=== PATIENT | male | born 1980 | race Caucasian/White ===

== ENCOUNTER 2017-06-24 16:19 | Emergency (ER) | payer OTHER ==
[~2017-06-24] VITALS: Ht 182.9 cm; Wt 108.9 kg
[2017-06-24] MEDS ORDERED: PAXIL10 MG PO (16:32)
[2017-06-24] MEDS ORDERED: BUSPIRONE HCL10 MG PO (16:32)
[2017-06-24] MEDS ORDERED: NAPROSYN500 MG PO (16:44)
[2017-06-24] MEDS ORDERED: MEDROLDOSEPACK PO (16:44)
[2017-06-24] MEDS ORDERED: HYDROCODONE-AP1 EAC6 PO (16:44)
[2017-06-24] MEDS ORDERED: [UNRECOGNIZED DRUG - OTHER] MISCELL (17:01)
[2017-06-24 17:17] VITALS: BP 112/69
== END 2017-06-24 17:17 | disposition home or self-care (01) ==
LOC: M.ERS 16:19
DX: M54.5 Low back pain (principal); F17.210 Nicotine dependence, cigarettes, uncomplicated; Z88.0 Allergy status to penicillin

== ENCOUNTER 2017-06-27 22:21 | Emergency (ER) | payer OTHER ==
[~2017-06-27] VITALS: Ht 182.9 cm; Wt 108.9 kg
[~2017-06-27 22:21] MED LIST: BUSPIRONE HCL10 MG PO; HYDROCODONE-AP1 EAC6 PO; MEDROLDOSEPACK PO; NAPROSYN500 MG PO; PAXIL10 MG PO; [UNRECOGNIZED DRUG - OTHER] MISCELL
[2017-06-27] MEDS ORDERED: FLEXERIL PO (22:40)
[2017-06-27 22:48] VITALS: BP 156/103
== END 2017-06-27 22:49 | disposition home or self-care (01) ==
LOC: M.ERS 22:21
DX: M54.9 Dorsalgia, unspecified (principal); F17.200 Nicotine dependence, unspecified, uncomplicated; Z88.0 Allergy status to penicillin